=== PATIENT | female | born 2000 | race Caucasian/White ===

== ENCOUNTER 2020-08-18 19:34 | Emergency (ER) | payer OTHER, SELFPAY ==
--- NOTE | ~2020-08-18 | XR_ITS ---
EXAMINATION: XR chest 2V DATE: 08/18/2020 20:21 INDICATION: Shortness of breath TECHNIQUE: PA and lateral views of the chest are obtained. COMPARISON: 08/29/2017 FINDINGS: There are airspace opacities of the lower lung zones. There is no pleural effusion or pneum othorax. The cardiomediastinal silhouette is normal. The visualized bones and soft tissues are unrema rkable. IMPRESSION: 1. Airspace opacities of the lower lung zones, consistent with atelectasis versus pneumonia. Reviewed, dictated and finalized at location A. IMPRESSION: 1. Airspace opacities of the lower lung zones, consistent with atelectasis vers us pneumonia.
[2020-08-18 19:52] VITALS: BP 135/86; PULSE 98; RESP 18; TEMP 36.9; O2SAT 98
[2020-08-18 19:58] VITALS: PULSE 98
--- NOTE | 2020-08-18 20:00 | ECG_ITS ---
Measurements Intervals [place] Rate: 93 P: 25 OK: 162 QRS: 54 QRSD: 83 T: 28 QT: 322 QTc: 402 Interpretive Statements SINUS RHYTHM MINIMAL Q WAVES- INFERIOR LEADS BORDERLINE ECG Electronically Signed On 08-19-2020 7:16:12 CDT by Jasvir Pike D.O.
[2020-08-18 20:17] LABS: Basophils Absolute Auto 0.05 K/mm3 (0.00-0.10); Basophils Percent Auto 0.4 % (0.0-1.0); Eosinophils Absolute Auto 0.08 K/mm3 (0.02-0.50); Eosinophils Percent Auto 0.7 % (1.0-6.0); Hematocrit 41.5 % (35.0-49.0); Immature Granulocyte Absolute 0.09 K/mm3 (0.00-0.00); Immature Granulocyte Percent A 0.8 % (0.0-0.0); Lymphocytes Absolute Auto 2.94 K/mm3 (1.10-4.50); Lymphocytes Percent Auto 25.2 % (18.0-42.0); Mean Corpuscular HGB Conc 31.3 g/dL (32.0-36.0); Mean Corpuscular Hemoglobin 27.5 pg (27.0-31.0); Mean Corpuscular Volume 87.9 fL (78.0-102.0); Mean Platelet Volume 9.3 fl (9.2-11.8); Monocytes Absolute Auto 0.59 K/mm3 (0.10-0.90); Monocytes Percent Auto 5.1 % (2.0-11.0); Neutrophils Absolute Auto 7.9 K/mm3 (1.7-7.2); Neutrophils Percent Auto 67.8 % (50.0-70.0); Platelet Count Result 346 K/mm3 (150-420); Red Blood Count 4.72 M/mm3 (4.20-5.40); White Blood Count 11.7 K/mm3 (4.8-10.8)
[2020-08-18 20:33] LABS: Alanine Aminotransferase 16 U/L (14-59); Albumin Level 3.2 g/dL (3.4-5.0); Alkaline Phosphatase 112 U/L (46-116); Anion Gap 5 mmol/L (8-16); Aspartate Amino Transferase 11 U/L (15-37); Bilirubin,Total 0.3 mg/dL (0.00-1.00); Blood Urea Nitrogen 11 mg/dL (7-18); Calcium 9.3 mg/dL (8.5-10.1); Carbon Dioxide 30 mmol/L (21-32); Chloride 98 mmol/L (98-108); Estimated Glomerular Filt Rate > 60; Glucose 103 mg/dL (70-99); Osmolality Calculated 275 mOsm/kg (285-295); Potassium 4.1 mmol/L (3.5-5.1); Sodium 133 mmol/L (136-145); Total Protein 7.3 g/dL (6.4-8.2)
[2020-08-18 20:36] LABS: Troponin I < 4.0 ng/L (0.00-60.4)
--- NOTE | 2020-08-18 20:59 | ED.CHESTPAIN ---
HPI - Chest Pain General Chief Complaint: Chest Pain Stated Complaint: sob, chest pain Source: patient and family Mode of arrival: ambulatory Limitations: no limitations History of Present Illness HPI narrative: this is a 20-year-old female with some presentation of chest discomfort midsternal reproducible with palpation with some mild shortness of breath with no cough no fever chills no nausea vomiting no abdominal pain. The patient is concerned that she may have a PE, apparently she was diagnosed with a PE approximately 4 years ago and was treated at that time, was attributed to her control and currently not on any blood thinners. complaint: chest pain and chest discomfort Onset (ago): day(s) Timing of current episode: episodic Prior episodes: No Onset: during rest Pain location: parasternal and subxiphoid Quality: aching and sharp Exacerbating factors: nothing Related Data Home Medications Medication Instructions Recorded Confirmed amitriptyline 10 mg PO DAILY 08/18/20 08/18/20 divalproex 250 mg PO DAILY 08/18/20 08/18/20 escitalopram oxalate 10 mg PO DAILY 08/18/20 08/18/20 Allergies Allergy/AdvReac Type Severity Reaction Status Date / Time No Known Allergies Allergy Verified 08/18/20 19:52 Review of Systems Review of Systems: All systems reviewed & are unremarkable except as noted in HPI and below PMFSH Past Medical History Medical History (Updated 08/18/20 @ 21:04 by Archie Buitrago MD) History of pulmonary embolus (PE) Exam Const: General: no acute distress Orientation/consciousness: patient oriented x3 HENMT: Head: normal to inspection Eyes: Conjunctivae: conjunctivae normal Pupils: Equal, round and reactive pupils present EOM: EOMs intact bilaterally Neck: Neck: normal visual inspection Chest: Chest palpation & inspection: normal inspection of the chest and tenderness Other: reproducible chest pain with palpation Resp: Effort & Inspection: normal respiratory effort Cardio: Rate: regular rate Rhythm: regular rhythm GI: Auscultation: normal bowel sounds : General: Yes no CVA tenderness Back/Spine/Pelvis: Back: no CVA tenderness Skin: General skin exam: normal color Rashes: no rashes Neuro: General: patient oriented x3, moves all extremities, no meningeal signs and no focal motor deficits Extrem: General: normal to inspection and no pedal edema Psych: Appearance: grossly normal Mental Status: mental status grossly normal Affect: normal affect Thought content: Yes Normal thought content present Course Course Emergency Course: reassessment of patient is comfortable with currently no chest pain no shortness of breath reviewed chest x-ray and labs with patient Vital Signs Vital signs: Vital Signs Temperature 36.9 C 08/18/20 19:52 Pulse Rate 98 08/18/20 19:52 Respiratory Rate 18 08/18/20 19:52 Blood Pressure 135/86 08/18/20 19:52 Pulse Oximetry 98 08/18/20 19:52 Temperature 36.9 C 08/18/20 19:52 Pulse Rate 98 08/18/20 19:58 Respiratory Rate 18 08/18/20 19:52 Blood Pressure 135/86 08/18/20 19:52 Pulse Oximetry 98 08/18/20 19:52 MDM - Chest Pain Lab Data Result diagrams: 08/18/20 20:12 08/18/20 20:12 Labs: Lab Results 08/18/20 08/18/20 08/18/20 Range/Units 20:12 20:12 20:12 WBC 11.7 H (4.8-10.8) K/mm3 RBC 4.72 (4.20-5.40) M/mm3 Hgb 13.0 (12.0-15.0) g/dL Hct 41.5 (35.0-49.0) % MCV 87.9 (78.0-102.0) fL MCH 27.5 (27.0-31.0) pg MCHC 31.3 L (32.0-36.0) g/dL RDW 13.0 (11.6-14.4) % Plt Count 346 (150-420) K/mm3 MPV 9.3 (9.2-11.8) fl Immature Gran % (Auto) 0.8 H (0.0-0.0) % Neut % (Auto) 67.8 (50.0-70.0) % Lymph % (Auto) 25.2 (18.0-42.0) % Riley % (Auto) 5.1 (2.0-11.0) % Eos % (Auto) 0.7 L (1.0-6.0) % Baso % (Auto) 0.4 (0.0-1.0) % Lymph # (Auto) 2.94 (1.10-4.50) K/mm3 Riley # (Auto) 0.59 (0.10-0.
[2020-08-18 21:02] VITALS: BP 143/87; PULSE 98; RESP 24; O2SAT 99
[2020-08-18] MEDS: cefTRIAXone 1 GM VIAL IM (21:02)
[2020-08-18 21:24] VITALS: PULSE 98; RESP 20; O2SAT 99
== END 2020-08-18 21:25 | disposition home or self-care (01) ==
PROVIDERS: Emergency Provider Emergency Medicine; PCP Family Medicine
DX: R07.89 Other chest pain (principal); M94.0 Chondrocostal junction syndrome [Tietze]; J18.9 Pneumonia, unspecified organism
CPT/HCPCS: 36415; 71046; 80053; 84484; 85025; 85380; 93005; 96372; 99283; 99284; J0696

== ENCOUNTER 2022-11-06 14:43 | Emergency (ER) | payer OTHER, SELFPAY ==
--- NOTE | ~2022-11-06 | US_ITS ---
EXAMINATION: US venous doppler [facility] DATE: 11/06/2022 15:13 INDICATION: Left lower limb pain TECHNIQUE: Romero scale images without and with compression and Doppler images of the left lower extrem ity veins were obtained. COMPARISON: None FINDINGS: There is thrombosis in one of two posterior tibial veins. The left common femoral vein, pro patricia femoral vein, femoral vein, popliteal vein, peroneal trunk, and greater saphenous vein are isabel nt. IMPRESSION: 1. Thrombosis in one of two posterior tibial veins. This finding was discussed with Dr. Jan esparza MD in the Emergency Department at 1518 hours on 11/06/2022. Reviewed, dictated and finalized at location L. IMPRESSION: 1. Thrombosis in one of two posterior tibial veins. This finding was discussed with Dr. Jan Meza MD in the Emergency Department at 1518 hours on 10/12.
[2022-11-06 14:46] VITALS: BP 142/98; PULSE 93; RESP 18; TEMP 36.3; O2SAT 99
--- NOTE | 2022-11-06 14:47 | ED.LOWEXIN ---
HPI - Extremity Injury (Lower) General Chief Complaint: Extremity Injury, Lower Stated Complaint: leg pain Time Seen by Provider: 11/06/22 14:46 Source: patient Mode of arrival: ambulatory Limitations: no limitations History of Present Illness HPI Narrative: 22-year-old female with a history of obesity anxiety/ depression, migraine, ADHD, pulmonary embolus in 2017( on oral contraceptives) presents to the ER with a 2 day history of -- unprovoked left calf pain. No history of trauma. No chest pain or shortness of breath Severity: mild Relieving factors: nothing Exacerbating factors: nothing Other symptoms: none Related Data Home Medications Medication Instructions Recorded Confirmed amitriptyline 10 mg tablet 10 mg PO DAILY 08/18/20 11/06/22 escitalopram oxalate 10 mg tablet 10 mg PO DAILY 08/18/20 11/06/22 cariprazine 3 mg capsule (Vraylar) 3 mg PO BID 11/06/22 11/06/22 dextroamphetamine-amphetamine 10 10 mg PO BID 11/06/22 11/06/22 mg tablet Allergies Allergy/AdvReac Type Severity Reaction Status Date / Time No Known Allergies Allergy Verified 11/06/22 14:51 Review of Systems Review of Systems: All systems reviewed & are unremarkable except as noted in HPI and below Constitutional: Constitutional: Reports as per HPI and Reports no additional constitutional complaints Eyes: Eyes: Reports as per HPI and Reports no additional eye complaints ENT: Reports system reviewed and no additional complaints, except as documented and Reports as per HPI Cardiovascular: Cardiovascular: Reports as per HPI and Reports no additional cardiovascular complaints Respiratory: Respiratory: Reports as per HPI and Reports no additional respiratory complaints Gastrointestinal: Gastrointestinal: Reports as per HPI and Reports no additional gastrointestinal complaints Genitourinary: Genitourinary: Reports no additional female genitourinary complaints and Reports as per HPI Musculoskeletal: Comments: left calf pain Integumentary/Breasts: Skin/Breast: Reports system reviewed and no additional complaints, except as docu and Reports as per HPI Neurologic: Reports system reviewed and no additional complaints, except as documented and Reports as per HPI Psychiatric: Psychiatric: Reports no additional psychiatric complaints and Reports as per HPI Endocrine: Endocrine: Reports no additional endocrine complaints and Reports as per HPI Hematologic/Lymphatic: Hematologic/Lymphatic: Reports no additional hematologic/lymphatic complaints and Reports as per HPI Allergic/Immunologic: Allergic/Immunologic: Reports no additional allergic/immunologic complaints and Reports as per HPI [facility] Past Medical History Medical History Bronchitis Depression History of pulmonary embolus (PE) Family History Family History Father Asthma Sibling Asthma Depression Other Cancer Social History Social History Smoking status: Never smoker Alcohol intake: current Substance use: unknown Living arrangements: alone 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 Gender identity (if verbalized by the patient): Female Exam Const: General: healthy appearing and no acute distress Nutritional Appearance: obese Orientation/consciousness: patient oriented x3 Limitations: no limitations HENMT: Head: normal to inspection Ears: external ears normal Face/Nose/Sinus: Normal external nose present Face and sinus: normal facial exam Mouth: Yes Normal oral and palatal mucosa present Throat: posterior oropharynx normal Eyes: Conjunctivae: conjunctivae normal Pupils: Equal, round and reactive pupils present EOM: EOMs intact bilaterally Direct Ophthalmoscopy: no photophobia Neck: Neck: normal visual inspection, no lymphadenopath
[2022-11-06 15:40] LABS: Basophils Absolute Auto 0.05 K/mm3 (0.00-0.10); Basophils Percent Auto 0.5 % (0.0-1.0); Eosinophils Absolute Auto 0.12 K/mm3 (0.02-0.50); Eosinophils Percent Auto 1.2 % (1.0-6.0); Hematocrit 48.6 % (35.0-49.0); Hemoglobin 14.5 g/dL (12.0-15.0); Immature Granulocyte Absolute 0.05 K/mm3 (0.00-0.00); Immature Granulocyte Percent A 0.5 % (0.0-0.0); Lymphocytes Absolute Auto 2.66 K/mm3 (1.10-4.50); Lymphocytes Percent Auto 25.8 % (18.0-42.0); Mean Corpuscular HGB Conc 29.8 g/dL (32.0-36.0); Mean Corpuscular Hemoglobin 29.2 pg (27.0-31.0); Mean Corpuscular Volume 97.8 fL (78.0-102.0); Mean Platelet Volume 9.2 fl (9.2-11.8); Monocytes Absolute Auto 0.54 K/mm3 (0.10-0.90); Monocytes Percent Auto 5.2 % (2.0-11.0); Neutrophils Absolute Auto 6.9 K/mm3 (1.7-7.2); Neutrophils Percent Auto 66.8 % (50.0-70.0); Platelet Count Result 269 K/mm3 (150-420); Red Blood Count 4.97 M/mm3 (4.20-5.40); Red Cell Distribution Width 13.1 % (11.6-14.4); White Blood Count 10.3 K/mm3 (4.8-10.8)
[2022-11-06 16:01] LABS: INR 0.9; Partial Thromboplastin Time 23.6 SEC (23.90-30.70)
[2022-11-06 16:02] LABS: Alanine Aminotransferase 12 U/L (14-59); Albumin Level 3.4 g/dL (3.4-5.0); Alkaline Phosphatase 100 U/L (46-116); Anion Gap 7 mmol/L (8-16); Aspartate Amino Transferase 29 U/L (15-37); Bilirubin,Total 0.3 mg/dL (0.00-1.00); Blood Urea Nitrogen 12 mg/dL (7-18); Calcium 8.6 mg/dL (8.5-10.1); Carbon Dioxide 28 mmol/L (21-32); Chloride 103 mmol/L (98-108); Estimated CRCL calculation 117 ml/min; Estimated Glomerular Filt Rate > 60; Glucose 89 mg/dL (70-99); Osmolality Calculated 284 mOsm/kg (285-295); Potassium 4.1 mmol/L (3.5-5.1); Sodium 138 mmol/L (136-145); Total Protein 7.3 g/dL (6.4-8.2)
[2022-11-06 16:09] LABS: D Dimer 3.93 mg/L (0.19-0.50)
[2022-11-06 16:45] VITALS: BP 156/88; PULSE 81; RESP 18; TEMP 36.4; O2SAT 97
[2022-11-06 17:06] LABS: Urine Pregnancy Test Negative
[2022-11-06 17:07] LABS: Pregnancy On Board Control Positive
[2022-11-08 14:49] LABS: Homocysteine 8.8 umol/L (<10.4)
[2022-11-08 21:40] LABS: Antithrombin III Activity 119 % normal (80-135)
[2022-11-11 20:45] LABS: Lupus dRVVT Screen 35 sec (<=45); PTT-LA Screen 31 sec (<=40)
[2022-11-12 13:32] LABS: Factor V (Leiden) Mutation NEGATIVE
[2022-11-15 11:11] LABS: Anti Cardio Antibody IgM <2.0 MPL-U/mL (<20.0); Anti Cardiolipin Antibody IgA <2.0 APL-U/mL (<20.0); Anti Cardiolipin Antibody IgG <2.0 GPL-U/mL (<20.0)
== END 2022-11-06 17:25 | disposition home or self-care (01) ==
PROVIDERS: Emergency Provider Internal Medicine Critical Care Medicine; PCP Family Medicine
DX: I82.542 Chronic embolism and thrombosis of left tibial vein (principal); Z86.711 Personal history of pulmonary embolism
CPT/HCPCS: 36415; 80053; 81025; 81240; 81241; 83090; 85025; 85300; 85303; 85306; 85380; 85610; 85613; 85730; 86147; 93971; 99284

== ENCOUNTER 2024-11-30 19:42 | Emergency (ER) | payer BC, SELFPAY ==
[2024-11-30 19:42] VITALS: BP 147/97; PULSE 83; RESP 18; TEMP 37.1; O2SAT 98
--- OUTSIDE RECORDS SUMMARY | 2024-11-30 20:00 | XMS_ITS | Clinical Summary ---
Author Organization [facility] Address [address] [place] [address] Care Team Providers Care Quantitative Strategy Analyst Name Role Phone Kadi Montoya MD Primary Care Provider [phone] Allergies No known active allergies Medications amitriptyline 10 MG tablet Take 10 mg by mouth daily. 07/27/2020 Active Acetaminophen-C affeine (EXCEDRIN ASPIRIN FREE OR) Take 1 m by mouth every 6 (six) hours as needed. Active divalproex EC 250 MG tablet Take 250 mg by mouth daily. 07/27/2020 Active ibuprofen 400 MG tablet Take 400 mg by mouth every 6 (six) hours as needed. Active escitalopram 10 MG tablet Take 10 mg by mouth daily. 07/27/2020 Active VENTOLIN HFA 108 (90 Base) MCG/ACT inhaler Take 1 Inhaler by mouth every 6 (six) hours as needed. 08/23/2020 Active naproxen 500 MG tablet 08/19/2020 Active Active Problems Problem Noted Date Diagnosed Date Perianal cyst 08/26/2020 Cyst of buttocks 08/10/2020 Social History Tobacco Use Types Packs/Day Years Used Date Smoking Tobacco: Never Smokeless Tobacco: Never Alcohol Use Standard Drinks/Week Comments Yes 5 (1 standard drink = 0.6 oz pur e alcohol) AUDIT-C Answer Date Recorded Q1: How often do you have a drink containing alc ohol? Monthly or less 08/10/2020 Q2: How many drinks containi ng alcohol do you have on a typical day when you are drinking? 3 or 4 08/10/2020 Q3: How often do you have si x or more drinks on one occasion? Less than monthly 08/10/2020 Comments Unknown Sex and Gender Information Value Date Recorded Sex Assigned at Not on file Legal Sex Female 8:58 PM CDT Gender Identity Not on file Sexual Orientation Not on file Last Filed Vital Signs Vital Sign Reading Time Taken Comments Blood Pressure 139/89 08/25/2020 1:31 PM CDT Pulse 106 08/25/2020 1:31 PM CDT Temperature 37.1 C (98.7 F) 08/25/2020 1:31 PM CDT Respiratory Rate 16 08/25/2020 1:31 PM CDT Oxygen Saturation 97% 08/25/2020 1:31 PM CDT Inhaled Oxygen Concentration - - Weight 162.4 kg (358 lb 1.6 oz) 08/25/2020 1:31 PM CDT Height 165.1 cm (5' 5) 08/25/2020 1:31 PM CDT Body Mass Index 59.59 08/25/2020 1:31 PM CDT Plan of Treatment Health Maintenance Due Date Last Done Comments Cervical Cancer Screening Pa p Smear (Age 21 to 29) Every 3 Years 1998 Cervical Cancer Screening 1998 Annual Physical 2001 HPV Vaccines (1 - 3-dose series) 2013 Hepatitis C 2016 DTaP, Tdap and Td Vaccines ( 1 - Tdap) 2017 Hepatitis B Vaccines (1 of 3 - 19+ 3-dose series) 2017 COVID-19 Vaccine (2 - 2023-2 5 season) 2024 07/22/2020 Meningococcal B Vaccine Aged Out No l onger eligible based on patient's age to complete this topic Meningococcal Vaccine Aged Out No margarita chris eligible based on patient's age to complete this topic Pneumococcal Vaccine: Pediat rics (0 to 5 Years) and At-Risk Patients (6 to 49 Years) Aged Out No longer eligi ble based on patient's age to complete this topic RSV Immunizations Under 20 Months Aged Out No longer eligible based on patient's age to complete this topic Insurance [facility] Care Teams Quantitative Strategy Analyst Relationship Specialty Start Date End Date Kadi Montoya MD [address] [place] [phone] PCP - General FAMILY PRACTICE 11/26/22
--- NOTE | 2024-11-30 20:05 | ED.GENADULT ---
HPI - General Adult General Chief complaint: Unspecified Stated complaint: sent for rabies preventative vaccination Time Seen by Provider: 11/30/24 20:02 Source: patient Mode of arrival: ambulatory Limitations: no limitations History of Present Illness HPI narrative: Patient is a 24-year-old female here sent by [facility] as she has bats in her apartment and needs pre exposure rabies medication. She did not get bit by an animal. Onset (ago): week(s) Radiation: non-radiation Quality: other ( No pain as there was no bite) Pain Consistency: other ( none) Relieving factors: none Exacerbating factors: none Associated symptoms: denies other symptoms Treatments prior to arrival: none Related Data Home Medications ?Medication ?Instructions ?Recorded ?Confirmed ?Last Taken ?Type amitriptyline 10 mg tablet 10 mg PO DAILY 08/18/20 11/06/22 08/18/20 History escitalopram oxalate 10 mg tablet 10 mg PO DAILY 08/18/20 11/06/22 08/18/20 History cariprazine 3 mg capsule (Vraylar) 3 mg PO BID 11/06/22 11/06/22 Unknown History dextroamphetamine-amphetamine 10 10 mg PO BID 11/06/22 11/06/22 Unknown History mg tablet Allergies Allergy/AdvReac Type Severity Reaction Status Date / Time No Known Allergies Allergy Verified 11/30/24 20:18 Review of Systems Review of Systems: All systems reviewed & are unremarkable except as noted in HPI and below Constitutional: Constitutional: Reports no additional constitutional complaints Eyes: Eyes: Reports no additional eye complaints ENT: Reports system reviewed and no additional complaints, except as documented Cardiovascular: Cardiovascular: Reports no additional cardiovascular complaints Respiratory: Respiratory: Reports no additional respiratory complaints Gastrointestinal: Gastrointestinal: Reports no additional gastrointestinal complaints Genitourinary: Genitourinary: Reports no additional female genitourinary complaints Musculoskeletal: Musculoskeletal: Reports no additional musculoskeletal complaints Integumentary/Breasts: Skin/Breast: Reports system reviewed and no additional complaints, except as docu Neurologic: Reports system reviewed and no additional complaints, except as documented Psychiatric: Psychiatric: Reports no additional psychiatric complaints Endocrine: Endocrine: Reports no additional endocrine complaints Hematologic/Lymphatic: Hematologic/Lymphatic: Reports no additional hematologic/lymphatic complaints Allergic/Immunologic: Allergic/Immunologic: Reports no additional allergic/immunologic complaints [facility] Past Medical History Medical History Bronchitis Depression History of pulmonary embolus (PE) Family History Family History Father Asthma Sibling Asthma Depression Other Cancer Social History Social History Smoking status: Never smoker Alcohol intake: current Substance use: unknown Living arrangements: alone 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 Gender identity (if verbalized by the patient): Female Exam Const: General: cooperative, healthy appearing and comfortable HENMT: Head: normal to inspection, No palpable skull fracture present and normocephalic Eyes: General: appearance normal, both eyes and all related structures Visual Foster: normal visual foster by confrontation Alignment and Position: alignment normal Neck: Neck: normal visual inspection, full ROM and no lymphadenopathy Chest: Chest palpation & inspection: normal inspection of the chest, normal palpation of entire chest wall and normal inspection of the chest Resp: Effort & Inspection: normal respiratory effort, able to speak in complete sentences and normal respiratory pattern Cardio: Jugular venous distension: no JVD Palpation: normal PMI Rate: regular rate Rhythm: regular rhythm Heart sounds: S1 normal heart sound present and S2 normal heart sound present GI: Inspection: normal to inspection and abdominal wall ecchymosis Back/Spine/Pelvis: Back: no CVA tenderness, No CVA tenderness and No mass Skin: General skin exam: normal color, no rashes or lesions noted and elasticity normal Neuro: General: oriented to person, Normal light touch and pain sensation and decrease sensation to monofilament Extrem: General: normal to inspection, full ROM and capillary refill normal Psych: Appearance: grossly normal, well kempt and not disheveled Mental Status: mental status grossly normal Course Vital Signs Vital signs: Vital Signs Temperature 37.3 C 11/30/24 23:45 Pulse Rate 85 11/30/24 23:45 Respiratory Rate 18 11/30/24 23:45 Blood Pressure 139/103 H 11/30/24 23:45 Pulse Oximetry 97 11/30/24 23:45 Oxygen Delivery Room Air 11/30/24 23:45 Temperature 37.3 C 11/30/24 23:45 Pulse Rate 85 11/30/24 23:45 Respiratory Rate 18 11/30/24 23:45 Blood Pressure 139/103 H 11/30/24 23:45 Pulse Oximetry 97 11/30/24 23:45 Oxygen Delivery Room Air 11/30/24 23:45 Medical Decision Making MDM Narrative Medical decision making narrative: patient is a 24-year-old female with exposure to bats in her house but no animal bite. Health department center to the emergency room to get pre exposure prophylaxis for rabies. Hospital protocol is to give rabies vaccine and rabies immunoglobulin. We confirmed this protocol by discussing with on-call [facility] infection control as well as pharmacy. We did not have enough rabies immunoglobulin and the patient will need to get rabies immunoglobulin at [facility] this evening as they have more supply at this time. She would like to get it tomorrow and not follow doctor Recommendation at this time. Patient is AMA and will follow up with the infection control for the immunoglobulin and continued vaccine doses. Vital Signs Vital Signs: Vital Signs Temperature 37.3 C 11/30/24 23:45 Pulse Rate 85 11/30/24 23:45 Respiratory Rate 18 11/30/24 23:45 Blood Pressure 139/103 H 11/30/24 23:45 Pulse Oximetry 97 11/30/24 23:45 Oxygen Delivery Room Air 11/30/24 23:45 Temperature 37.3 C 11/30/24 23:45 Pulse Rate 85 11/30/24 23:45 Respiratory Rate 18 11/30/24 23:45 Blood Pressure 139/103 H 11/30/24 23:45 Pulse Oximetry 97 11/30/24 23:45 Oxygen Delivery Room Air 11/30/24 23:45 Discharge Plan Discharge Clinical Impression: Exposure to bat without known bite Patient Disposition: Home Condition: Stable Instructions: Rabies Vaccine (By injection) Patient Language: Ivorian Prescriptions: New RabAvert (PF) 2.5 unit suspension for reconstitution 2.5 unit IM ONCE Qty: 1 0RF Rx Instructions: DAY 3,7,14 HyperRAB (PF) 300 unit/mL solution 3,100 unit IM ONCE Qty: 11 0RF Rx Instructions: as a single dose No Action amitriptyline 10 mg tablet 10 mg PO DAILY escitalopram oxalate 10 mg tablet 10 mg PO DAILY dextroamphetamine-amphetamine 10 mg tablet 10 mg PO BID Vraylar 3 mg capsule 3 mg PO BID Eliquis 5 mg tablet 10 mg PO BID Qty: 14 0RF Follow-up/Referrals: Kadi Montoya MD [Primary Care Provider] - Time of Disposition: 21:56
--- OUTSIDE RECORDS SUMMARY | 2024-11-30 20:25 | XMS_ITS | Clinical Summary ---
Author Organization [facility] Address [address] [place] [id number] Care Team Providers Care Single Stayer Operator Name Role Phone Kadi Montoya MD Primary Care Provider [phone] Allergies No known active allergies Medications amitriptyline [...] patient's age to complete this topic Insurance [facility] Care Teams Single Stayer Operator Relationship Specialty Start Date End Date Kadi Montoya MD [address] [place] [phone] PCP - General FAMILY PRACTICE 11/26/22
--- OUTSIDE RECORDS SUMMARY | 2024-11-30 20:25 | XMS_ITS | Encounter Summary ---
Author Organization [facility] Address [address] [place] [address] Care Team Providers Care Supplier Relationship Director Name Role Phone Unavailable Primary Care Provider Unavailabl e Encounter Details Date Type Department Care Team (Late st Contact Info) Description 1998 Outpatient Historical [facility] Department of Peds at [facility] [address] [place] [place] [address] Archie Servin MD NO ADDRESS ON FILE Social History Tobacco Use Types Packs/Day Years Used Date Smoking Tobacco: Never Assessed Comments Unknown Sex and Gender Information Value Date Recorded Sex Assigned at Not on file Legal Sex Female 4:29 AM RN PACU Gender Identity Not on file Sexual Orientation Not on file documented as of this encounter Plan of Treatment Not on file documented as of this encounter Visit Diagnoses Not on filedocumented in this encounter
--- OUTSIDE RECORDS SUMMARY | 2024-11-30 20:25 | XMS_ITS | Encounter Summary ---
Author Organization [facility] Address [address] [place] [address] Care Team Providers Care Children Teacher Name Role Phone Unavailable Primary Care Provider Unavailabl e Encounter Details Date Type Department Care Team (Latest Contact Info) Description 1998 Inpatient Historical [facility] PATIENT IN A BED Elias Huang MD NO ADDRESS ON FILE Archie Servin MD NO ADDRESS ON FILE Pneumonia due to respiratory syncytial virus (Primary Dx) Social History Tobacco Use Types Packs/Day Years Used Date Smoking Tobacco: Never Assessed Comments Unknown Sex and Gender Information Value Date Recorded Sex Assigned at Not on file Legal Sex Female 4:29 AM DIRECTOR PROJECT MANAGEMENT Gender Identity Not on file Sexual Orientation Not on file documented as of this encounter Plan of Treatment Not on file documented as of this encounter Visit Diagnoses Diagnosis Pneumonia due to respiratory syncytial virus- Primary documented in this encounter
--- OUTSIDE RECORDS SUMMARY | 2024-11-30 20:25 | XMS_ITS | Encounter Summary ---
Author Organization [facility] Address [address] [place] [address] Care Team Providers Care Appellate Law Clerk Name Role Phone Unavailable Primary Care Provider Unavailabl e Encounter Details Date Type Department Care Team (Late st Contact Info) Description 1998 Outpatient Historical [facility] Department of Peds at [facility] [address] [place] [address] Elias Huang MD NO ADDRESS ON FILE Social History Tobacco Use Types Packs/Day Years Used Date Smoking Tobacco: Never Assessed Comments Unknown Sex and Gender Information Value Date Recorded Sex Assigned at Not on file Legal Sex Female 4:29 AM FRAUD PREVENTION ANALYST Gender Identity Not on file Sexual Orientation Not on file documented as of this encounter Plan of Treatment Not on file documented as of this encounter Visit Diagnoses Not on filedocumented in this encounter
--- OUTSIDE RECORDS SUMMARY | 2024-11-30 20:25 | XMS_ITS | Clinical Summary ---
Author Organization [employer] Address [address] [place]: Epic Prelude ADT RONNIE MATHIS [address] Care Team Providers Care Commercial Fisherman Name Role Phone Unavailable Primary Care Provider Unavailabl e Social History Tobacco Use Types Packs/Day Years Used Date Smoking Tobacco: Never Assessed Comments Unknown Sex and Gender Information Value Date Recorded Sex Assigned at Not on file Legal Sex Female 4:29 AM DIRECTOR OF HOME HEALTH SERVICES Gender Identity Not on file Sexual Orientation Not on file Plan of Treatment Health Maintenance Due Date Last Done Comments HPV VACCINES (1 - 3-dose series) 2013 DTAP/TDAP/TD VACCINES (1 - Tdap) 2017 HEPATITIS B VACCINES (1 of 3 - 19+ 3-dose series) 02/11 CERVICAL CANCER SCREENING 2019 HPV/Cotest (21-29) 2019 PAP SMEAR 2019 INFLUENZA VACCINE (#1) 2024
[2024-11-30] MEDS: RABIES VACCINE (IMOVAX) 2.5 UNITS VIAL IM (21:41)
--- NOTE | 2024-11-30 21:48 | PC.NURSE ---
pt ambulatory to bathroom at this time.
--- NOTE | 2024-11-30 22:19 | PC.NURSE ---
This RN spoke with BRYANT Mistry with [facility] infection prevention. Fidelia stated that the IDPH recommendations be followed for the rabies prophylaxis, which is what [facility] policy states: Patient is to receive immunoglobulin (weight based) and vaccine series of 4 total shots at days 0, 3, 7, 14. Patient is not immunocompromised, so she does not require any other shots after day 14, unless exposed, then would proceed from there. Fidelia stated that she will follow up with patient in the morning to schedule the rest of the vaccine series.
--- NOTE | 2024-11-30 22:52 | PC.NURSE ---
patient update provided. plan of care discussed and presented to patient who verbalized understanding.
[2024-11-30 23:45] VITALS: BP 139/103; PULSE 85; RESP 18; TEMP 37.3; O2SAT 97
== END 2024-12-01 00:02 | disposition home or self-care (01) ==
PROVIDERS: Emergency Provider Emergency Medicine; PCP Family Medicine
DX: Z20.3 Contact with and (suspected) exposure to rabies (principal); Z23 Encounter for immunization
CPT/HCPCS: 90471; 90675; 99283

== ENCOUNTER 2024-12-03 07:33 | Outpatient (CLI) | payer BC, SELFPAY ==
--- OUTSIDE RECORDS SUMMARY | 2024-12-03 07:43 | XMS_ITS | Encounter Summary ---
Author Organization [facility] Address [address] [place] [address] Care Team Providers Care Die Stamper Name Role Phone Unavailable Primary Care Provider Unavailabl e Encounter Details Date Type Department Care Team (Late st Contact Info) Description 1998 Outpatient Historical [facility] Department of Peds at [facility] [address] [facility] 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
--- OUTSIDE RECORDS SUMMARY | 2024-12-03 07:43 | XMS_ITS | Encounter Summary ---
Author Organization [facility] Address [address] [place] [address] Care Team Providers Care Communication Analyst Name Role Phone Unavailable Primary Care Provider Unavailabl e Encounter Details Date Type Department Care Team (Late st Contact Info) Description 1998 Outpatient Historical [facility] Department of Peds at [facility] [address] 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
--- OUTSIDE RECORDS SUMMARY | 2024-12-03 07:43 | XMS_ITS | Clinical Summary ---
Author Organization [employer] Address [address] 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
--- OUTSIDE RECORDS SUMMARY | 2024-12-03 07:43 | XMS_ITS | Encounter Summary ---
Author Organization [employer] Address 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
--- OUTSIDE RECORDS SUMMARY | 2024-12-03 07:43 | XMS_ITS | Clinical Summary ---
Author Organization [facility] Address [address] [place] [address] Care Team Providers Care Pet Sitter Name Role Phone Kadi Montoya MD Primary Care Provider [phone] Allergies No known active allergies Medications amitriptyline [...] patient's age to complete this topic Insurance [facility] Care Teams Pet Sitter Relationship Specialty Start Date End Date Kadi Montoya MD [address] [place] [id number] PCP - General FAMILY PRACTICE 11/26/22
[2024-12-03 07:56] VITALS: BP 140/88; PULSE 80; RESP 14; TEMP 36.6; O2SAT 97; BMI 53.5
[2024-12-03] MEDS: RABIES VACCINE (IMOVAX) 2.5 UNITS VIAL IM (08:20)
[2024-12-03] MEDS: RABIES IMMUNE GLOBULIN 3100 UNITS IM (08:23)
--- NOTE | 2024-12-14 11:03 | PC.NURSE ---
12/07/24 Spoke with Mary via phone that missed appt. rabies vaccine this a.m. Please come 12/08/2024 at 7:30 for rabies vaccine. Patient stated OK. 12/08/24 NO show no call.
== END 2024-12-03 07:34 | disposition home or self-care (01) ==
PROVIDERS: PCP Family Medicine; Visit Provider Emergency Medicine
DX: Z20.3 Contact with and (suspected) exposure to rabies (principal); Z23 Encounter for immunization
CPT/HCPCS: 90375; 90471; 90675